=== PATIENT | male | born 1970 | race Caucasian/White ===

== ENCOUNTER 2017-07-19 10:23 | Emergency (ER) | payer OTHER ==
[~2017-07-19] VITALS: Ht 180.3 cm; Wt 117.9 kg
[~2017-07-19 10:23] MED LIST: (None)20 M1 PO; ALLEGRA ALLERG180 MG PO; Acyclovir800 MG PO; Albuterol17 G1 INH; BENZ100A PO; FEXPSEER PO; Flonase 0.05% N16 GM; LORA10 PO; Prednisone10 MG PO; Prednisone20 MG PO; TRIA80TC TOP
[2017-07-19] MEDS ORDERED: Prednisone20 MG PO (11:25)
[2017-07-19] MEDS ORDERED: TRIA15CR3 TOP (11:25)
== END 2017-07-19 11:42 | disposition home or self-care (01) ==
LOC: ER 10:23
DX: L23.7 Allergic contact dermatitis due to plants, except food (principal); Z88.5 Allergy status to narcotic agent; Z87.891 Personal history of nicotine dependence
CPT/HCPCS: 96372; 99283; J3301

== ENCOUNTER 2018-08-27 18:46 | Emergency (ER) | payer OTHER ==
[~2018-08-27] VITALS: Ht 177.8 cm; Wt 131.5 kg
[~2018-08-27 18:46] MED LIST changes: +PENVK500 PO; +TRIA15CR3 TOP
[2018-08-27] MEDS ORDERED: Norco 5-325 Ta1 EACH PO (21:13)
== END 2018-08-27 21:19 | disposition home or self-care (01) ==
LOC: ER 18:46
DX: M25.562 Pain in left knee (principal); E78.00 Pure hypercholesterolemia, unspecified; Z88.5 Allergy status to narcotic agent; Z87.891 Personal history of nicotine dependence; W19.XXXA Unspecified fall, initial encounter
CPT/HCPCS: 29505; 73564; 99283-25; A9270-GY

== ENCOUNTER 2019-03-07 01:00 | Observation (INO) | payer OTHER ==
[~2019-03-07] VITALS: Ht 180.3 cm; Wt 128.4 kg
[~2019-03-07 01:00] MED LIST changes: +Norco 5-325 Ta1 EACH PO; +ROBITUSSIN NIG237 ML PO; +Sudogest30 MG PO; +Zithromax250 MG PO
[2019-03-07 01:25] LABS: BASOPHILS ABSOLUTE AUTO 0.03 K/mm3 (0.00-0.23); BASOPHILS PERCENT AUTO 0 % (0-2); EOSINOPHILS ABSOLUTE AUTO 0.17 K/mm3 (0.00-0.68); EOSINOPHILS PERCENT AUTO 2 % (0-6); Hematocrit 45.8 % (37.0-53.0); Hemoglobin 15.3 g/dL (13.5-17.5); IMMATURE GRAN ABSOLUTE AUTO 0.05 K/mm3 (0.00-0.10); IMMATURE GRAN PERCENT AUTO 1 % (0-1); LYMPHOCYTES PERCENT AUTO 31 % (21-46); MONOCYTES ABSOLUTE AUTO 0.79 K/mm3 (0.16-1.47); MONOCYTES PERCENT AUTO 8 % (4-13); Mean Corpuscular HGB 31.4 pg (26.0-34.0); Mean Corpuscular HGB Conc 33.4 g/dL (31.5-36.5); Mean Corpuscular Volume 94 fL (80-100); Mean Platelet Volume 10.6 fL (9.1-12.4); NEUTROPHILS ABSOLUTE AUTO 5.97 K/mm3 (1.96-9.15); NEUTROPHILS PERCENT AUTO 59 % (41-73); Platelet Count 265 K/mm3 (150-400); RDW Coefficient Variation 12.3 % (11.7-14.2); RDW Standard Deviation 42.4 fL (35.1-46.3); Red Blood Cell Count 4.87 M/mm3 (4.30-5.90); White Blood Cell Count 10.11 K/mm3 (4.00-11.30)
[2019-03-07 01:44] LABS: Alanine Aminotransfer (ALT/SGP 38 U/L (12-78); Albumin, Blood 3.7 g/dL (3.4-5.0); Albumin/Globulin Ratio 0.9 (0.8-1.8); Alk Phos 119 U/L (50-136); Anion Gap 10 mmol/L (6-16); Aspartate Aminotrans (AST/SGOT 19 U/L (12-37); Bilirubin, Total 0.5 mg/dL (0.1-1.0); Blood Urea Nitrogen 12 mg/dL (8-24); Bun/Creatinine Ratio 15.6 (12.0-20.0); CO2, Blood 21 mmol/L (21-32); Calcium, Blood 8.8 mg/dL (8.5-10.1); Chloride, Blood 109 mmol/L (98-108); Creatinine, Blood 0.77 mg/dL (0.60-1.20); Glomerular Filtration Rate >60 (60-); Glucose, Blood 145 mg/dL (70-99); Potassium, Blood 3.2 mmol/L (3.5-5.5); Salicylate <1.7 mg/dL (2.8-20.0); Sodium, Blood 140 mmol/L (136-145); Total Protein, Blood 7.7 g/dL (6.4-8.2)
[2019-03-07 01:45] LABS: Acetaminophen, Random <2.0 ug/mL (10.0-30.0); Ethanol (Alcohol), Blood, Med <3 mg/dL
--- NOTE | 2019-03-07 03:00 | NUR ---
PT ARRIVED TO ICU 2 FROM ER. ACCOMPANIED BY SOLAR THERMAL INSTALLER, TECH, AND SECURITY X2. PT GETS AGITATED WITH CARE BUT IS DROWSY AND WILL FALL TO SLEEP IF LEFT ALONE. PT HAS SLURRED SPEECH AND KEEPS EYE'S CLOSED. WILL SWAT AT STAFF WITH CARE. HERE AND HELPS KEEP PT CALM.
[2019-03-07 04:04] LABS: Source, Urine Clean Catch
[2019-03-07 04:07] LABS: Bilirubin, Urine Neg (Neg); Blood, Urine Neg (Neg); Glucose Qualitative, Urine Neg (Neg); Ketones, Urine 2+ (Neg); Leukocyte Esterase, Urine Neg (Neg); Nitrite, Urine Neg (Neg); Protein, Urine Neg (Neg); Specific Gravity, Urine 1.015 (1.003-1.022); Urobilinogen, Urine NORM (Normal)
[2019-03-07 04:13] LABS: Appearance, Urine Clear (Clear); Color, Urine Yellow (P-Yellow)
[2019-03-07 04:22] LABS: U Amphetamine Screen DETECTED; U Barbituate Screen Not Detected; U Benzodiazapine Screen Not Detected; U Buprenorphine Screen Not Detected; U Cannabinoids Screen Not Detected; U Cocaine Screen Not Detected; U Methadone Screen Not Detected; U Methamphetamine Screen DETECTED; U Opiates Screen Not Detected; U Oxycodone Screen Not Detected; U Phencyclidine Screen Not Detected; U Propoxyphene Screen Not Detected
--- NOTE | 2019-03-07 06:14 | NUR ---
PT SLEEPING. CONTINUES TO BE ANGRY WITH STAFF AND WHEN AWAKE, BUT FALLS TO SLEEP QUICKLY. MOVING SELF IN BED. CONTINUES TO BE ON 1:1 SUICIDE PRECAUTIONS. NO SIGN OF DISTRESS.
--- NOTE | 2019-03-07 10:12 | NUR ---
PERSONNEL FROM [facility] AT BEDSIDE TO EVALUATE. PT TOO SOMNOLENT TO RESPOND TO QUESTIONS AT THIS TIME. WILL RETURN TOMORROW.
--- NOTE | 2019-03-07 11:01 | NUR ---
RECEIVED CALL FROM POISON [facility], GAVE THEM UPDATE ON PT CONDITION. THEY WILL CALL TOMORROW FOR UPDATE.
--- NOTE | 2019-03-07 12:28 | NUR ---
REASSESSMENT: PATIENT AOUSES TO SPEECH AND FOLLOWS COMANDS, BUT IS STILL SOMNOLENT. HRR AND VSS. LUNGS CTAB, BUT HAS APNEIC EPISODES WHILE SLEEPING. USING URINAL WITH ASSISTANCE. DENIED SI WHEN ASKED. DENIES PAIN. WENT HOME.
--- NOTE | 2019-03-07 15:26 | NUR ---
DR. LANZA AT BEDSIDE. UNABLE TO INTERVIEW PATIENT D/T SOMNOLENCE. WILL TRY AGAIN TOMORROW.
--- NOTE | 2019-03-07 18:13 | NUR ---
SHIFT SUMMARY: SOMNOLENT MOST OF SHIFT, BUT DOES AROUSE TO SPEECH AND FOLLOWS COMMANDS. VSS, AFEBRILE. LUNGS CTAB, ON ROOM AIR. DR. LANZA TO SEE PATIENT TOMORROW WHEN PT IS MORE AWAKE. STAUTS HAS BEEN CHANGED TO MEDICAL, NO TELE. USING URINAL WITH ASSISTANCE. DENIES SI WHEN ASKED.
--- NOTE | 2019-03-07 19:27 | NUR ---
START OF SHIFT: REPORT FROM GUI SOLORIO AT BEDSIDE. PT WAS FINISHING EVENING MEAL. VSS. PT ASSISTED UP TO TOILET AND TOLERATED WELL. PT PLEASANT AND COOPERATIVE. PT DENIES SI AT THIS TIME. PT GIVEN AND SHOWN USE OF CALL LIGHT. PT'S AT BEDSIDE.
--- NOTE | 2019-03-07 20:59 | NUR ---
UPDATE: PT CONTINUING TO SLEEP. KRUPA. MARIA R PWD. SPOUSE AT BEDSIDE. CALL LIGHT WITHIN REACH. THIS RN SITTING AT DOORWAY WITH PT IN FULL VIEW.
--- NOTE | 2019-03-07 21:42 | NUR ---
UPDATE: PT AWAKENS TO VOICE. GAVE PERMISSION TO PLACE SCD'S. SCD'S PLACED AND TURNED ON. PT CONTINUING TO SLEEP. KRUPA. SKIN PWD. SPOUSE WENT HOME BUT WILL BE BACK.
--- NOTE | 2019-03-08 02:20 | NUR ---
ASSUMED CARE OF PT AT 0100 THIS AM. REPORT RECEIVED FROM OSMIN MENG. PT PRESENTS IN BED IN NO APPARENT DISTRESS. AT BEDSIDE ROOMING IN FOR THE NIGHT. SITTER PROVIDED FOR 1:1 SUICIDAL PRECAUTIONS. WILL CONTINUE TO MONITOR PT FOR SAFETY.
[2019-03-08 04:59] LABS: Albumin, Blood 3.4 g/dL (3.4-5.0); Anion Gap 6 mmol/L (6-16); Blood Urea Nitrogen 9 mg/dL (8-24); Bun/Creatinine Ratio 10.4 (12.0-20.0); CO2, Blood 25 mmol/L (21-32); Calcium, Blood 8.9 mg/dL (8.5-10.1); Chloride, Blood 113 mmol/L (98-108); Creatinine, Blood 0.87 mg/dL (0.60-1.20); Glomerular Filtration Rate >60 (60-); Glucose, Blood 91 mg/dL (70-99); Phosphorus, Blood 3.5 mg/dL (2.5-4.9); Potassium, Blood 3.7 mmol/L (3.5-5.5); Sodium, Blood 144 mmol/L (136-145)
--- NOTE | 2019-03-08 06:47 | NUR ---
PT HAS NOT MADE ANY ATTEMPTS TOWARDS SELF HARM. WHEN AWAKE WAS PLEASANT AND COOPERATIVE WITH CARE. NO VOICED OR S/S SUICIDAL IDEATIONS. NO AGITATION NOTED. WILL CONTINUE TO MONITOR, HAVE 1:1 SITTER FOR PATIENT SAFETY, AND WILL REPORT OFF TO ONCOMING RN.
--- NOTE | 2019-03-08 07:21 | NUR ---
ASSUMED CARE OF PT. PT IS ASLEEP. AWAKENS TO VOICE. ANSWERS QUESTIONS APPROPRIATELY. DENIES PAIN AT THIS TIME. PT'S AT BEDSIDE. WILL ALLOW PT TO SLEEP IN.
--- NOTE | 2019-03-08 07:54 | NUR ---
Pt eating breakfast at this time.
--- NOTE | 2019-03-08 09:04 | NUR ---
DR. VENCES AT BEDSIDE, UPDATED HER OF PT'S STATUS. PT HAS BEEN COOPERATIVE AMD HAS BEEN DENYING SUICIDAL IDEATION OR THOUGHTS.
--- NOTE | 2019-03-08 09:45 | NUR ---
PT TAKEN TO THE SHOWER ROOM FOR SHOWER. PT WAS MONITORED WHILE HE'S IN THE SHOWER.
--- NOTE | 2019-03-08 10:03 | NUR ---
[id number], WITH [facility] AT BEDSIDE TALKING TO PT. 1003-MARCIA ALVAREZ AT BEDSIDE TALKING TO PT REGARDING PT'S SAFETY PLAN.
--- NOTE | 2019-03-08 10:36 | NUR ---
Completed Safety Plan. Patient cooperative and engaged in plan. Became tearful; when relaying his current stressors of ovarian cancer and her recent surgery, currently living with friend due to loss of their home. He ws seeing Dr. Panchal and Raquel at [facility], but stopped seeing them He indepemdently scheduled his own follow up appoiinments for meds , and therapy March 23. He was on Olanzapine and stopped taking his meds about 3 months ago. He does experience hallucination of seeing shadows, voices, and at times TV talking to him. He was actively hallucnating at time of this interview. He describes that he bacame overwhelmed and wanted to go to sleep. He took 10 Olanzapine, and did tell his what he had done. He reports no previous attempts. He does use alcohol, unkown if he was using substances at time of OD. He has filed for SSD, and says he is unable to work with other people as he has "anger problems". He was soft spoken, goal directed and made good eye contact during interview. He is on an involuntary Hold and waxs seen by [facility] [employer] Server this morning. She reports she is not moving forward with further legal commitment. He is future oriented and states it was "stupid" what he did. He reports he does not currently have thoughts of suicide, self harm. Danielle Glaser M.Ed., [facility]
--- NOTE | 2019-03-08 13:00 | NUR ---
DR. LANZA WAS CALLED IF HE WILL BE COMING TO SEE PT. HE STATED HE WILL COME SHORTLY.
--- NOTE | 2019-03-08 14:43 | NUR ---
1405-RONAK HUGGINS, MENTAL HEALTH PRACTITIONER CAME BY AND SPOKE WITH PT AND . SHE STATED TO LIFT THE HOLD AND THE HIGH SUICIDE RISK. 1440-SPOKE WITH DR. VENCES, INFORMED HER RONAK HUGGINS CAME BY TO SEE PT AND THAT PT CAN BE DISCHARGE.
--- NOTE | 2019-03-08 15:49 | NUR ---
DISCHARGE INSTRUCTIONS READ TO PATIENT AND SENT DISCHARGE INSTRUCTION PACKET WITH PATIENT. AWAITING FOR JEANNINE BAIN TO GIVE PT AND SOME ASSISTANCE.
--- NOTE | 2019-03-08 16:09 | NUR ---
pt left for home at this time.
== END 2019-03-08 16:00 | disposition home or self-care (01) ==
LOC: ER 01:00 → ICUW 01:01 → ICUE 01:01
PROVIDERS: Emergency Medicine; Family Medicine; ADMIT Hospitalist
DX: T42.4X2A Poisoning by benzodiazepines, intentional self-harm, initial encounter (principal); G92 Toxic encephalopathy; F31.9 Bipolar disorder, unspecified; F63.81 Intermittent explosive disorder; E87.6 Hypokalemia; F17.200 Nicotine dependence, unspecified, uncomplicated; E66.9 Obesity, unspecified; Z68.41 Body mass index [BMI] 40.0-44.9, adult; Z88.5 Allergy status to narcotic agent; Z79.899 Other long term (current) drug therapy
CPT/HCPCS: 36415; 80053; 80069; 81003; 85025; 93005; 93010; 96360; 96361; 99285-25; G0378; G0480; J3480; J7030

== ENCOUNTER 2019-05-26 05:06 | Emergency (ER) | payer OTHER ==
[~2019-05-26] VITALS: Ht 180.3 cm; Wt 136.1 kg
[2019-05-26 05:45] LABS: BASOPHILS ABSOLUTE AUTO 0.07 K/mm3 (0.00-0.23); BASOPHILS PERCENT AUTO 1 % (0-2); EOSINOPHILS ABSOLUTE AUTO 0.34 K/mm3 (0.00-0.68); EOSINOPHILS PERCENT AUTO 3 % (0-6); Hematocrit 49.2 % (37.0-53.0); Hemoglobin 16.2 g/dL (13.5-17.5); IMMATURE GRAN PERCENT AUTO 1 % (0-1); LYMPHOCYTES ABSOLUTE AUTO 3.21 K/mm3 (0.84-5.20); LYMPHOCYTES PERCENT AUTO 26 % (21-46); MONOCYTES ABSOLUTE AUTO 0.71 K/mm3 (0.16-1.47); MONOCYTES PERCENT AUTO 6 % (4-13); Mean Corpuscular HGB 31.1 pg (26.0-34.0); Mean Corpuscular HGB Conc 32.9 g/dL (31.5-36.5); Mean Corpuscular Volume 94 fL (80-100); Mean Platelet Volume 10.3 fL (9.1-12.4); NEUTROPHILS ABSOLUTE AUTO 7.91 K/mm3 (1.96-9.15); NEUTROPHILS PERCENT AUTO 64 % (41-73); Platelet Count 323 K/mm3 (150-400); RDW Coefficient Variation 12.2 % (11.7-14.2); RDW Standard Deviation 42.8 fL (35.1-46.3); Red Blood Cell Count 5.21 M/mm3 (4.30-5.90); White Blood Cell Count 12.34 K/mm3 (4.00-11.30)
[2019-05-26 06:07] LABS: Alanine Aminotransfer (ALT/SGP 38 U/L (12-78); Albumin, Blood 3.4 g/dL (3.4-5.0); Albumin/Globulin Ratio 0.8 (0.8-1.8); Anion Gap 7 mmol/L (6-16); Aspartate Aminotrans (AST/SGOT 21 U/L (12-37); Bilirubin, Total 0.3 mg/dL (0.1-1.0); Blood Urea Nitrogen 11 mg/dL (8-24); Bun/Creatinine Ratio 13.4 (12.0-20.0); CO2, Blood 26 mmol/L (21-32); Calcium, Blood 9.6 mg/dL (8.5-10.1); Chloride, Blood 108 mmol/L (98-108); Creatinine, Blood 0.82 mg/dL (0.60-1.20); Globulin, Blood 4.3 g/dL (2.2-4.0); Glomerular Filtration Rate >60 (60-); Glucose, Blood 114 mg/dL (70-99); Potassium, Blood 4.1 mmol/L (3.5-5.5); Sodium, Blood 141 mmol/L (136-145); Total Protein, Blood 7.7 g/dL (6.4-8.2)
[2019-05-26 06:09] LABS: Alk Phos 133 U/L (50-136); Troponin I <0.015 ng/mL (0.000-0.040)
[2019-05-26] MEDS ORDERED: Pepcid20 MG PO (07:43)
[2019-05-26] MEDS ORDERED: Veetids 500500 MG PO (07:43)
== END 2019-05-26 07:52 | disposition home or self-care (01) ==
LOC: ER 05:06
PROVIDERS: Emergency Medicine
DX: K21.9 Gastro-esophageal reflux disease without esophagitis (principal); K80.20 Calculus of gallbladder without cholecystitis without obstruction; K04.7 Periapical abscess without sinus
CPT/HCPCS: 71046; 76705; 80053; 83690; 84484; 85025; 93005; 93010; 99284-25

== ENCOUNTER 2019-07-14 13:32 | Emergency (ER) | payer OTHER ==
[~2019-07-14] VITALS: Ht 180.3 cm; Wt 127.0 kg
[~2019-07-14 13:32] MED LIST changes: +Pepcid20 MG PO; +Veetids 500500 MG PO
[2019-07-14] MEDS ORDERED: AMIT25 PO (14:10)
[2019-07-14] MEDS ORDERED: PERP4 PO (14:10)
[2019-07-14] MEDS ORDERED: PRILOSEC OTC20 MG PO (14:11)
[2019-07-14] MEDS ORDERED: Prednisone20 MG PO (15:24)
[2019-07-14] MEDS ORDERED: ALBU90OI INH (15:24)
[2019-07-14] MEDS ORDERED: PSEU120ER PO (15:24)
== END 2019-07-14 15:35 | disposition home or self-care (01) ==
LOC: ER 13:32
DX: J45.909 Unspecified asthma, uncomplicated (principal); F31.9 Bipolar disorder, unspecified; F17.200 Nicotine dependence, unspecified, uncomplicated; Z88.5 Allergy status to narcotic agent
CPT/HCPCS: 94640; 99283-25; J7512

== ENCOUNTER 2019-11-20 08:50 | Emergency (ER) | payer OTHER ==
[~2019-11-20 08:50] MED LIST changes: +ALBU90OI INH; +AMIT10; +AMIT25 PO; +FAMO20; +OLAN10; +OMEPRAZOLE MAGN20 M2; +PERP4 PO; +PRILOSEC OTC20 MG PO; +PSEU120ER PO
== END 2019-11-20 09:52 | disposition left against medical advice (07) ==
LOC: ER 08:50
DX: Z53.21 Procedure and treatment not carried out due to patient leaving prior to being seen by health care provider (principal)

== ENCOUNTER 2019-12-24 15:46 | Emergency (ER) | payer OTHER ==
[~2019-12-24] VITALS: Ht 180.3 cm; Wt 141.1 kg
[2019-12-24] MEDS ORDERED: Percocet 5-3251 EACH PO (16:47)
[2019-12-24] MEDS ORDERED: IBUP800 PO (16:47)
[2019-12-24] MEDS ORDERED: CRUTCH4 XX (16:48)
== END 2019-12-24 17:15 | disposition home or self-care (01) ==
LOC: ER 15:46
DX: S93.401A Sprain of unspecified ligament of right ankle, initial encounter (principal); S93.402A Sprain of unspecified ligament of left ankle, initial encounter; F31.9 Bipolar disorder, unspecified; F17.200 Nicotine dependence, unspecified, uncomplicated; Z79.899 Other long term (current) drug therapy; Z88.5 Allergy status to narcotic agent; W17.89XA Other fall from one level to another, initial encounter; Y93.39 Activity, other involving climbing, rappelling and jumping off
CPT/HCPCS: 29515; 73610; 73630; 96372-59; 99283-25; A9270; J1885

== ENCOUNTER 2019-12-31 12:33 | Emergency (ER) | payer OTHER ==
[~2019-12-31] VITALS: Ht 180.3 cm; Wt 141.1 kg
[~2019-12-31 12:33] MED LIST changes: +CRUTCH4 XX; +IBUP800 PO; +Percocet 5-3251 EACH PO
[2019-12-31] MEDS ORDERED: ACETAMINOPHEN500 MG PO (14:10)
== END 2019-12-31 14:20 | disposition home or self-care (01) ==
LOC: ER 12:33
DX: M25.571 Pain in right ankle and joints of right foot (principal); M25.572 Pain in left ankle and joints of left foot; J30.2 Other seasonal allergic rhinitis; Z87.891 Personal history of nicotine dependence; Z79.899 Other long term (current) drug therapy; Z88.5 Allergy status to narcotic agent; W17.89XA Other fall from one level to another, initial encounter; Y93.39 Activity, other involving climbing, rappelling and jumping off
CPT/HCPCS: 99283

== ENCOUNTER 2020-02-12 02:13 | Emergency (ER) | payer OTHER ==
[~2020-02-12] VITALS: Ht 180.3 cm; Wt 143.8 kg
[~2020-02-12 02:13] MED LIST changes: +ACETAMINOPHEN500 MG PO
== END 2020-02-12 05:28 | disposition home or self-care (01) ==
LOC: ER 02:13
DX: T78.1XXA Other adverse food reactions, not elsewhere classified, initial encounter (principal); R13.10 Dysphagia, unspecified; R60.0 Localized edema; F31.9 Bipolar disorder, unspecified; F17.200 Nicotine dependence, unspecified, uncomplicated; Z79.899 Other long term (current) drug therapy; Z88.5 Allergy status to narcotic agent
CPT/HCPCS: 36415; 96374; 96375; 99283-25; J1100; J1200

== ENCOUNTER 2020-04-20 05:04 | Emergency (ER) | payer OTHER ==
[~2020-04-20] VITALS: Ht 180.3 cm; Wt 147.4 kg
[2020-04-20] MEDS ORDERED: Bactrim Ds Tab1 EACH PO (06:13)
== END 2020-04-20 06:19 | disposition home or self-care (01) ==
LOC: ER 05:04
DX: H66.91 Otitis media, unspecified, right ear (principal); F17.210 Nicotine dependence, cigarettes, uncomplicated; Z79.899 Other long term (current) drug therapy; Z88.5 Allergy status to narcotic agent
CPT/HCPCS: 99282; A9270

== ENCOUNTER 2020-05-01 01:03 | Emergency (ER) | payer OTHER ==
[~2020-05-01] VITALS: Ht 182.9 cm; Wt 147.4 kg
[~2020-05-01 01:03] MED LIST changes: +Bactrim Ds Tab1 EACH PO
[2020-05-01] MEDS ORDERED: Colace250 MG PO (03:21)
[2020-05-01] MEDS ORDERED: HYDR1TAB94 PO (03:21)
== END 2020-05-01 03:50 | disposition home or self-care (01) ==
LOC: ER 01:03
DX: K04.7 Periapical abscess without sinus (principal); F17.200 Nicotine dependence, unspecified, uncomplicated; Z88.5 Allergy status to narcotic agent
CPT/HCPCS: 64400; 99282-25; A9270

== ENCOUNTER 2020-07-03 09:47 | Emergency (ER) | payer OTHER | END 2020-07-03 10:31 | disposition left against medical advice (07) | LOC: ER 09:47 | DX: Z53.21 Procedure and treatment not carried out due to patient leaving prior to being seen by health care provider (principal) ==

== ENCOUNTER 2020-10-13 11:20 | Emergency (ER) | payer OTHER ==
[~2020-10-13] VITALS: Ht 180.3 cm; Wt 138.3 kg
[~2020-10-13 11:20] MED LIST changes: +Colace250 MG PO; +HYDR1TAB94 PO
[2020-10-13] MEDS ORDERED: Ventolin/Prove6.7 GM (11:32)
[2020-10-13] MEDS ORDERED: PRILOSEC OTC20 MG (11:33)
[2020-10-13] MEDS ORDERED: Prednisone20 MG PO (11:48)
== END 2020-10-13 11:58 | disposition home or self-care (01) ==
LOC: ER 11:20
DX: L50.9 Urticaria, unspecified (principal); F17.210 Nicotine dependence, cigarettes, uncomplicated; Z88.5 Allergy status to narcotic agent; Z79.899 Other long term (current) drug therapy; Z79.52 Long term (current) use of systemic steroids
CPT/HCPCS: 99282; A9270

== ENCOUNTER 2020-11-28 16:13 | Emergency (ER) | payer OTHER ==
[~2020-11-28] VITALS: Ht 180.3 cm; Wt 140.6 kg
[~2020-11-28 16:13] MED LIST changes: +PRILOSEC OTC20 MG; +Ventolin/Prove6.7 GM
[2020-11-28 16:44] LABS: BASOPHILS ABSOLUTE AUTO 0.09 K/mm3 (0.00-0.23); BASOPHILS PERCENT AUTO 1 % (0-2); EOSINOPHILS ABSOLUTE AUTO 0.37 K/mm3 (0.00-0.68); EOSINOPHILS PERCENT AUTO 3 % (0-6); Hematocrit 50.1 % (37.0-53.0); Hemoglobin 16.7 g/dL (13.5-17.5); IMMATURE GRAN ABSOLUTE AUTO 0.22 K/mm3 (0.00-0.10); IMMATURE GRAN PERCENT AUTO 2 % (0-1); LYMPHOCYTES ABSOLUTE AUTO 2.57 K/mm3 (0.84-5.20); LYMPHOCYTES PERCENT AUTO 20 % (21-46); MONOCYTES ABSOLUTE AUTO 1.02 K/mm3 (0.16-1.47); MONOCYTES PERCENT AUTO 8 % (4-13); Mean Corpuscular HGB 31.3 pg (26.0-34.0); Mean Corpuscular HGB Conc 33.3 g/dL (31.5-36.5); Mean Corpuscular Volume 94 fL (80-100); Mean Platelet Volume 10.4 fL (9.1-12.4); NEUTROPHILS ABSOLUTE AUTO 8.69 K/mm3 (1.96-9.15); NEUTROPHILS PERCENT AUTO 67 % (41-73); Platelet Count 318 K/mm3 (150-400); Red Blood Cell Count 5.34 M/mm3 (4.30-5.90); White Blood Cell Count 12.96 K/mm3 (4.00-11.30)
[2020-11-28 16:57] LABS: Alanine Aminotransfer (ALT/SGP 106 U/L (12-78); Albumin, Blood 3.6 g/dL (3.4-5.0); Albumin/Globulin Ratio 0.8 (0.8-1.8); Alk Phos 170 U/L (50-136); Anion Gap 1 mmol/L (6-16); Aspartate Aminotrans (AST/SGOT 41 U/L (12-37); Bilirubin, Total 0.3 mg/dL (0.1-1.0); Blood Urea Nitrogen 11 mg/dL (8-24); Bun/Creatinine Ratio 10.7 (12.0-20.0); CO2, Blood 30 mmol/L (21-32); Calcium, Blood 9.1 mg/dL (8.5-10.1); Chloride, Blood 109 mmol/L (98-108); Creatinine, Blood 1.03 mg/dL (0.60-1.20); Globulin, Blood 4.7 g/dL (2.2-4.0); Glomerular Filtration Rate >60 (60-); Glucose, Blood 126 mg/dL (70-99); Potassium, Blood 4.2 mmol/L (3.5-5.5); Sodium, Blood 140 mmol/L (136-145); Total Protein, Blood 8.3 g/dL (6.4-8.2)
[2020-11-28] MEDS ORDERED: PRED20 PO (17:48)
[2020-11-28] MEDS ORDERED: BENADRYL25 MG PO (17:48)
== END 2020-11-28 18:01 | disposition home or self-care (01) ==
LOC: ER 16:13
PROVIDERS: Physician Assistant
DX: T78.40XA Allergy, unspecified, initial encounter (principal); L29.9 Pruritus, unspecified; F17.210 Nicotine dependence, cigarettes, uncomplicated; Z20.822 Contact with and (suspected) exposure to COVID-19; Z88.5 Allergy status to narcotic agent; Z79.899 Other long term (current) drug therapy
CPT/HCPCS: 36415; 71046; 80053; 84484; 85025; 93005; 93010; 96374; 96375; 99284-25; J1200; J2930

== ENCOUNTER 2021-01-05 21:29 | Observation (INO) | payer OTHER ==
[~2021-01-05] VITALS: Ht 180.3 cm; Wt 154.2 kg
[~2021-01-05 21:29] MED LIST changes: +BENADRYL25 MG PO; +PRED20 PO
[2021-01-05 21:58] LABS: BASOPHILS ABSOLUTE AUTO 0.05 K/mm3 (0.00-0.23); BASOPHILS PERCENT AUTO 1 % (0-2); EOSINOPHILS ABSOLUTE AUTO 0.33 K/mm3 (0.00-0.68); EOSINOPHILS PERCENT AUTO 3 % (0-6); Hematocrit 47.1 % (37.0-53.0); Hemoglobin 15.7 g/dL (13.5-17.5); IMMATURE GRAN ABSOLUTE AUTO 0.08 K/mm3 (0.00-0.10); IMMATURE GRAN PERCENT AUTO 1 % (0-1); LYMPHOCYTES ABSOLUTE AUTO 2.56 K/mm3 (0.84-5.20); LYMPHOCYTES PERCENT AUTO 25 % (21-46); MONOCYTES ABSOLUTE AUTO 0.78 K/mm3 (0.16-1.47); MONOCYTES PERCENT AUTO 8 % (4-13); Mean Corpuscular HGB 31.6 pg (26.0-34.0); Mean Corpuscular HGB Conc 33.3 g/dL (31.5-36.5); Mean Corpuscular Volume 95 fL (80-100); Mean Platelet Volume 10.1 fL (9.1-12.4); NEUTROPHILS ABSOLUTE AUTO 6.61 K/mm3 (1.96-9.15); NEUTROPHILS PERCENT AUTO 63 % (41-73); Platelet Count 283 K/mm3 (150-400); RDW Coefficient Variation 12.8 % (11.7-14.2); RDW Standard Deviation 44.5 fL (35.1-46.3); Red Blood Cell Count 4.97 M/mm3 (4.30-5.90); White Blood Cell Count 10.41 K/mm3 (4.00-11.30)
[2021-01-05 22:16] LABS: Alanine Aminotransfer (ALT/SGP 57 U/L (12-78); Albumin, Blood 3.4 g/dL (3.4-5.0); Albumin/Globulin Ratio 0.7 (0.8-1.8); Alk Phos 186 U/L (50-136); Anion Gap 7 mmol/L (6-16); Aspartate Aminotrans (AST/SGOT 28 U/L (12-37); Bilirubin, Total 0.2 mg/dL (0.1-1.0); Blood Urea Nitrogen 10 mg/dL (8-24); CO2, Blood 25 mmol/L (21-32); Calcium, Blood 9.3 mg/dL (8.5-10.1); Chloride, Blood 108 mmol/L (98-108); Creatinine, Blood 0.84 mg/dL (0.60-1.20); Globulin, Blood 4.8 g/dL (2.2-4.0); Glomerular Filtration Rate >60 (60-); Glucose, Blood 110 mg/dL (70-99); Sodium, Blood 140 mmol/L (136-145); Total Protein, Blood 8.2 g/dL (6.4-8.2)
[2021-01-05] MEDS ORDERED: OMEPRAZOLE MAGN20 M1 PO (23:19)
[2021-01-06 00:15] LABS: Source, Urine Clean Catch
[2021-01-06 00:16] LABS: Bilirubin, Urine Neg (Neg); Blood, Urine Neg (Neg); Glucose Qualitative, Urine Neg (Neg); Ketones, Urine Neg (Neg); Leukocyte Esterase, Urine Neg (Neg); Nitrite, Urine Neg (Neg); Protein, Urine Neg (Neg); Urobilinogen, Urine NORM (Normal)
[2021-01-06 00:20] LABS: Appearance, Urine Clear (Clear); Color, Urine Yellow (P-Yellow)
[2021-01-06 01:12] LABS: SARS-Cov-2 (COVID-19) PCR, MMC NEGATIVE (NEGATIVE)
--- NOTE | 2021-01-06 06:32 | NUR ---
PT AAOX4, NAD, PT SLEEPING COMFOTABLY, NO NEEDS VERBALIZED AT AT THIS TIME. PT AWARE OF CARE. SAFETY MEASUREMENT MAINTAINED.
--- NOTE | 2021-01-06 12:30 | NUR ---
PT TO OR AT APROX 1237
--- NOTE | 2021-01-06 13:03 | NUR ---
PT HERE BY DWAYNE RECENTLY TO DAYSURGERY. History, Chart, Medications and Allergies reviewed before start of procedure. Lungs clear T/O to Auscultation. Patient confirms NPO status and agrees with scheduled surgery. Pre-Op teaching done. Pt verbalizes understanding.
--- NOTE | 2021-01-06 13:34 | NUR ---
OTHER RN Murray ASSUMING CARE OF PT IN DAYSURGERY, GIVEN REPORT.
--- NOTE | 2021-01-06 19:11 | NUR ---
PT POD 0 LAP KYRIE. LAP SITES X'S 4 C/D/I. PT C/O 12/29 PAIN GIVEN 0.[address] GEORGE. PT 99% ON 6L, WILL TITRATE ABLE. ORDER FOR CPAP AND CONTINOUS BIOX-RT NOTIFED.
--- NOTE | 2021-01-07 04:27 | NUR ---
SHIFT SUMMARY A/OX4, PLEASANT AND COOPERATIVE WITH CARE. C/O MODERATE ABD PAIN S/P LAP KYRIE, MEDICATED PER EMAR. DRESSINGS C/D/I. 5L VIA NC, CONT BIOX IN PLACE WITH SATS GREATER THAN 92. VSS, NO ACUTE CHANGES AT THIS TIME. BED IN LOWEST POSIITON WITH CALL LIGHT IN REACH. WILL CONTINUE TO MONITOR AND REPORT TO ONCOMING RN.
[2021-01-07] MEDS ORDERED: Norco 5-325 Ta1 EACH PO (07:33)
--- NOTE | 2021-01-07 10:19 | NUR ---
DISCHARGE PT DISCHARGED HOME AT 0935 FROM UNIT. PT GIVEN WRITTEN AND VERBAL DISCHARGE INSTRUCTIONS AND VERBALIZED UNDERSTANDING. WRITTEN RX FOR PAIN MEDICATION GIVEN, COPY IN CHART. WC TO CAR.
--- NOTE | 2021-01-07 12:20 | NUR ---
01/07/21 1220 Judith Flores VERIFICATIONS: EDIT CHART.
== END 2021-01-07 10:02 | disposition home or self-care (01) ==
LOC: ER 21:29 → SURS 21:30 → ER 23:54 → SURS 23:54
PROVIDERS: Emergency Medicine; Student in an Organized Health Care Education/Training Program; Surgery; ADMIT Surgery
PROC: 0FT44ZZ Resection of Gallbladder, Percutaneous Endoscopic Approach (ICD-10-PCS; principal; 2021-01-06 13:00)
DX: K80.12 Calculus of gallbladder with acute and chronic cholecystitis without obstruction (principal); J30.9 Allergic rhinitis, unspecified; E66.01 Morbid (severe) obesity due to excess calories; F17.210 Nicotine dependence, cigarettes, uncomplicated; Z88.5 Allergy status to narcotic agent; Z79.52 Long term (current) use of systemic steroids; Z79.899 Other long term (current) drug therapy; Z68.42 Body mass index [BMI] 45.0-49.9, adult
CPT/HCPCS: 36415; 71045; 74177; 74300; 76705; 80053; 81003; 83605; 83690; 85025; 88304; 93005; 93010; 94660; 94762; 96374; 96375; 96376; 99285-25; A9270; C1729; G0378; J1100; J1170; J1885; J2270; J2370; J2405; J2543; J2704; J3010; J7030; J7120; Q9967; U0004

== ENCOUNTER 2021-01-22 04:57 | Emergency (ER) | payer OTHER ==
[~2021-01-22] VITALS: Ht 180.3 cm; Wt 156.9 kg
[~2021-01-22 04:57] MED LIST changes: +OMEPRAZOLE MAGN20 M1 PO
[2021-01-22] MEDS ORDERED: CEPHALEXIN 500MG (05:19)
[2021-01-22] MEDS ORDERED: DOCU100 PO (05:20)
[2021-01-22] MEDS ORDERED: Monodox100 MG (05:20)
== END 2021-01-22 07:15 | disposition home or self-care (01) ==
LOC: ER 04:57
DX: T81.41XA Infection following a procedure, superficial incisional surgical site, initial encounter (principal); L03.311 Cellulitis of abdominal wall; T36.1X5A Adverse effect of cephalosporins and other beta-lactam antibiotics, initial encounter; F17.200 Nicotine dependence, unspecified, uncomplicated
CPT/HCPCS: 99283; A9270

== ENCOUNTER 2021-02-22 00:41 | Emergency (ER) | payer OTHER ==
[~2021-02-22] VITALS: Ht 180.3 cm; Wt 158.3 kg
[~2021-02-22 00:41] MED LIST changes: +CEPHALEXIN 500MG; +DOCU100 PO; +Monodox100 MG
[2021-02-22 02:16] LABS: BASOPHILS ABSOLUTE AUTO 0.04 K/mm3 (0.00-0.23); BASOPHILS PERCENT AUTO 0 % (0-2); EOSINOPHILS ABSOLUTE AUTO 0.29 K/mm3 (0.00-0.68); EOSINOPHILS PERCENT AUTO 3 % (0-6); Hematocrit 40.4 % (37.0-53.0); Hemoglobin 13.1 g/dL (13.5-17.5); IMMATURE GRAN ABSOLUTE AUTO 0.13 K/mm3 (0.00-0.10); IMMATURE GRAN PERCENT AUTO 1 % (0-1); LYMPHOCYTES ABSOLUTE AUTO 2.61 K/mm3 (0.84-5.20); LYMPHOCYTES PERCENT AUTO 27 % (21-46); MONOCYTES ABSOLUTE AUTO 0.66 K/mm3 (0.16-1.47); MONOCYTES PERCENT AUTO 7 % (4-13); Mean Corpuscular HGB Conc 32.4 g/dL (31.5-36.5); Mean Corpuscular Volume 96 fL (80-100); Mean Platelet Volume 10.5 fL (9.1-12.4); NEUTROPHILS ABSOLUTE AUTO 6.05 K/mm3 (1.96-9.15); NEUTROPHILS PERCENT AUTO 62 % (41-73); Platelet Count 228 K/mm3 (150-400); RDW Coefficient Variation 12.6 % (11.7-14.2); RDW Standard Deviation 44.5 fL (35.1-46.3); Red Blood Cell Count 4.23 M/mm3 (4.30-5.90); White Blood Cell Count 9.78 K/mm3 (4.00-11.30)
[2021-02-22 02:22] LABS: Alanine Aminotransfer (ALT/SGP 88 U/L (12-78); Albumin, Blood 2.9 g/dL (3.4-5.0); Albumin/Globulin Ratio 0.7 (0.8-1.8); Alk Phos 182 U/L (50-136); Anion Gap 8 mmol/L (6-16); Aspartate Aminotrans (AST/SGOT 35 U/L (12-37); Bilirubin, Total 0.1 mg/dL (0.1-1.0); Blood Urea Nitrogen 10 mg/dL (8-24); CO2, Blood 25 mmol/L (21-32); Calcium, Blood 8.7 mg/dL (8.5-10.1); Chloride, Blood 107 mmol/L (98-108); Creatinine, Blood 0.83 mg/dL (0.60-1.20); Globulin, Blood 4.3 g/dL (2.2-4.0); Glomerular Filtration Rate >60 (60-); Glucose, Blood 298 mg/dL (70-99); Potassium, Blood 3.7 mmol/L (3.5-5.5); Sodium, Blood 140 mmol/L (136-145); Total Protein, Blood 7.2 g/dL (6.4-8.2); Troponin I <0.015 ng/mL (0.000-0.040)
[2021-02-22 04:15] LABS: Influenza A, PCR NEGATIVE (NEGATIVE); Influenza B, PCR NEGATIVE (NEGATIVE); Resp Syncytial Virus, PCR NEGATIVE (NEGATIVE); SARS-Cov-2 (COVID-19) PCR, MMC NEGATIVE (NEGATIVE)
== END 2021-02-22 07:38 | disposition home or self-care (01) ==
LOC: ER 00:41
PROVIDERS: Student in an Organized Health Care Education/Training Program
DX: R06.00 Dyspnea, unspecified (principal); R05.9 Cough, unspecified; Z20.822 Contact with and (suspected) exposure to COVID-19; F17.210 Nicotine dependence, cigarettes, uncomplicated; Z88.5 Allergy status to narcotic agent; Z79.899 Other long term (current) drug therapy
CPT/HCPCS: 0241U; 36415; 71045; 71260; 80053; 83880; 84484; 85025; 85379; 93005; 93010; 99285-25; Q9967

== ENCOUNTER 2021-08-03 14:53 | Emergency (ER) | payer OTHER ==
[~2021-08-03] VITALS: Ht 180.3 cm; Wt 142.9 kg
[2021-08-03] MEDS ORDERED: HYDR1TAB94 PO (16:25)
== END 2021-08-03 16:41 | disposition home or self-care (01) ==
LOC: ER 14:53
DX: M25.561 Pain in right knee (principal); F17.210 Nicotine dependence, cigarettes, uncomplicated; E66.9 Obesity, unspecified; X50.1XXA Overexertion from prolonged static or awkward postures, initial encounter; Z79.899 Other long term (current) drug therapy; Z88.5 Allergy status to narcotic agent
CPT/HCPCS: 73562-RT; A9270

== ENCOUNTER 2022-04-12 09:24 | Emergency (ER) | payer OTHER ==
[~2022-04-12] VITALS: Ht 172.7 cm; Wt 136.1 kg
[2022-04-12 10:53] LABS: Influenza A, PCR NEGATIVE (NEGATIVE); Influenza B, PCR NEGATIVE (NEGATIVE); Resp Syncytial Virus, PCR NEGATIVE (NEGATIVE); SARS-Cov-2 (COVID-19) PCR, MMC NEGATIVE (NEGATIVE)
[2022-04-12] MEDS ORDERED: BENZ100A PO (11:32)
== END 2022-04-12 11:50 | disposition home or self-care (01) ==
LOC: ER 09:24
PROVIDERS: Student in an Organized Health Care Education/Training Program
DX: J32.9 Chronic sinusitis, unspecified (principal); Z87.891 Personal history of nicotine dependence; Z20.822 Contact with and (suspected) exposure to COVID-19
CPT/HCPCS: 0241U; 71046; A9270

== ENCOUNTER 2022-04-18 15:54 | Emergency (ER) | payer OTHER ==
[~2022-04-18] VITALS: Ht 180.3 cm; Wt 170.6 kg
[~2022-04-18 15:54] MED LIST changes: +CODEINE-GUAIFE120 M1 PO; +CODITUSSIN AC473 M1 PO
[2022-04-18] MEDS ORDERED: CODITUSSIN AC473 M1 PO (16:19)
[2022-04-18] MEDS ORDERED: METF500C PO (23:34)
[2022-04-19] MEDS ORDERED: ALBU90OI INH (02:06)
[2022-04-19] MEDS ORDERED: PRED20 PO (02:06)
== END 2022-04-18 16:22 | disposition home or self-care (01) ==
LOC: ER 15:54
DX: J20.8 Acute bronchitis due to other specified organisms (principal); Z88.5 Allergy status to narcotic agent; Z79.899 Other long term (current) drug therapy; Z87.891 Personal history of nicotine dependence
CPT/HCPCS: 99282

== ENCOUNTER → 2022-05-15 | Outpatient (CLI) | payer OTHER ==
[~2022-05-15] MED LIST changes: +METF500C PO
[2022-05-15 13:25] LABS: BASOPHILS ABSOLUTE AUTO 0.04 K/mm3 (0.00-0.23); BASOPHILS PERCENT AUTO 0 % (0-2); EOSINOPHILS ABSOLUTE AUTO 0.34 K/mm3 (0.00-0.68); EOSINOPHILS PERCENT AUTO 4 % (0-6); Hematocrit 45.5 % (37.0-53.0); Hemoglobin 14.8 g/dL (13.5-17.5); IMMATURE GRAN ABSOLUTE AUTO 0.08 K/mm3 (0.00-0.10); IMMATURE GRAN PERCENT AUTO 1 % (0-1); LYMPHOCYTES ABSOLUTE AUTO 1.85 K/mm3 (0.84-5.20); LYMPHOCYTES PERCENT AUTO 19 % (21-46); MONOCYTES ABSOLUTE AUTO 0.58 K/mm3 (0.16-1.47); MONOCYTES PERCENT AUTO 6 % (4-13); Mean Corpuscular HGB 30.6 pg (26.0-34.0); Mean Corpuscular HGB Conc 32.5 g/dL (31.5-36.5); Mean Corpuscular Volume 94 fL (80-100); Mean Platelet Volume 10.2 fL (9.1-12.4); NEUTROPHILS PERCENT AUTO 70 % (41-73); Platelet Count 250 K/mm3 (150-400); RDW Coefficient Variation 13.4 % (11.7-14.2); RDW Standard Deviation 46.1 fL (35.1-46.3); Red Blood Cell Count 4.83 M/mm3 (4.30-5.90); White Blood Cell Count 9.59 K/mm3 (4.00-11.30)
[2022-05-15 13:32] LABS: Albumin, Blood 3.5 g/dL (3.4-5.0); Albumin/Globulin Ratio 0.8 (0.8-1.8); Bilirubin, Total 0.3 mg/dL (0.1-1.0); Calcium, Blood 9.1 mg/dL (8.5-10.1); Creatinine, Blood 1.07 mg/dL (0.60-1.20); Globulin, Blood 4.5 g/dL (2.2-4.0); Potassium, Blood 3.9 mmol/L (3.5-5.5)
== END | disposition home or self-care (01) ==
LOC: LAB SHORT 13:16
PROVIDERS: Physician Assistant
DX: R06.00 Dyspnea, unspecified (principal)
CPT/HCPCS: 80053; 83880; 84484; 85025

== ENCOUNTER 2022-05-27 07:58 | Emergency (ER) | payer OTHER ==
[~2022-05-27] VITALS: Ht 154.9 cm; Wt 113.4 kg
[2022-05-27 09:47] LABS: Influenza A, PCR NEGATIVE (NEGATIVE); Influenza B, PCR NEGATIVE (NEGATIVE); Resp Syncytial Virus, PCR NEGATIVE (NEGATIVE); SARS-Cov-2 (COVID-19) PCR, MMC NEGATIVE (NEGATIVE)
[2022-05-27] MEDS ORDERED: IBUP800 PO (10:20)
[2022-05-27] MEDS ORDERED: Amoxicillin875 MG PO (10:20)
== END 2022-05-27 10:32 | disposition home or self-care (01) ==
LOC: ER 07:58
PROVIDERS: Emergency Medicine
DX: J02.0 Streptococcal pharyngitis (principal); E11.9 Type 2 diabetes mellitus without complications; J45.909 Unspecified asthma, uncomplicated; Z88.5 Allergy status to narcotic agent; Z79.899 Other long term (current) drug therapy; Z79.84 Long term (current) use of oral hypoglycemic drugs; Z79.52 Long term (current) use of systemic steroids; Z20.822 Contact with and (suspected) exposure to COVID-19
CPT/HCPCS: 0241U; 87430; 99282

== ENCOUNTER 2022-06-07 15:08 | Emergency (ER) | payer OTHER ==
[~2022-06-07] VITALS: Ht 180.3 cm; Wt 167.8 kg
[~2022-06-07 15:08] MED LIST changes: +Amoxicillin875 MG PO
[2022-06-07] MEDS ORDERED: AMOCLA875 PO (16:47)
== END 2022-06-07 17:01 | disposition home or self-care (01) ==
LOC: ER 15:08
DX: K08.89 Other specified disorders of teeth and supporting structures (principal); Z79.899 Other long term (current) drug therapy; Z87.891 Personal history of nicotine dependence
CPT/HCPCS: A9270

== ENCOUNTER 2022-06-27 23:02 | Emergency (ER) | payer OTHER ==
[~2022-06-27] VITALS: Ht 180.3 cm; Wt 171.0 kg
[~2022-06-27 23:02] MED LIST changes: +AMOCLA875 PO
[2022-06-27] MEDS ORDERED: ABILIFY MYCITE2 M2 (23:23)
[2022-06-27] MEDS ORDERED: HYDROXYZINE PAM25 MG PO (23:23)
[2022-06-28 00:07] LABS: BASOPHILS ABSOLUTE AUTO 0.09 K/mm3 (0.00-0.23); BASOPHILS PERCENT AUTO 1 % (0-2); EOSINOPHILS ABSOLUTE AUTO 0.43 K/mm3 (0.00-0.68); EOSINOPHILS PERCENT AUTO 4 % (0-6); Hematocrit 46.3 % (37.0-53.0); Hemoglobin 15.1 g/dL (13.5-17.5); IMMATURE GRAN ABSOLUTE AUTO 0.06 K/mm3 (0.00-0.10); IMMATURE GRAN PERCENT AUTO 1 % (0-1); LYMPHOCYTES ABSOLUTE AUTO 3.61 K/mm3 (0.84-5.20); LYMPHOCYTES PERCENT AUTO 30 % (21-46); MONOCYTES ABSOLUTE AUTO 0.88 K/mm3 (0.16-1.47); MONOCYTES PERCENT AUTO 7 % (4-13); Mean Corpuscular HGB 30.8 pg (26.0-34.0); Mean Corpuscular HGB Conc 32.6 g/dL (31.5-36.5); Mean Corpuscular Volume 95 fL (80-100); Mean Platelet Volume 10.6 fL (9.1-12.4); NEUTROPHILS ABSOLUTE AUTO 7.04 K/mm3 (1.96-9.15); NEUTROPHILS PERCENT AUTO 58 % (41-73); Platelet Count 257 K/mm3 (150-400); RDW Coefficient Variation 12.9 % (11.7-14.2); RDW Standard Deviation 44.1 fL (35.1-46.3); White Blood Cell Count 12.11 K/mm3 (4.00-11.30)
[2022-06-28 00:19] LABS: Calcium, Blood 9.2 mg/dL (8.5-10.1); Creatinine, Blood 1.07 mg/dL (0.60-1.20); Potassium, Blood 4.1 mmol/L (3.5-5.5)
== END 2022-06-28 03:51 | disposition home or self-care (01) ==
LOC: ER 23:02
PROVIDERS: Student in an Organized Health Care Education/Training Program
DX: R07.89 Other chest pain (principal); J45.909 Unspecified asthma, uncomplicated; E11.9 Type 2 diabetes mellitus without complications; G47.30 Sleep apnea, unspecified; Z79.899 Other long term (current) drug therapy; Z79.84 Long term (current) use of oral hypoglycemic drugs; Z87.891 Personal history of nicotine dependence
CPT/HCPCS: 36415; 71046; 80048; 83735; 83880; 84484; 85025; 93005; 93010; 96374; 99285-25; A9270; J1885

== ENCOUNTER 2022-07-13 06:10 | Emergency (ER) | payer OTHER ==
[~2022-07-13] VITALS: Ht 180.3 cm; Wt 169.6 kg
[~2022-07-13 06:10] MED LIST changes: +ABILIFY MYCITE2 M2; +HYDROXYZINE PAM25 MG PO
[2022-07-13 06:17] VITALS: BP 135/85
== END 2022-07-13 09:17 | disposition home or self-care (01) ==
LOC: ER 06:10
DX: R09.81 Nasal congestion (principal); R05.9 Cough, unspecified; Z79.899 Other long term (current) drug therapy; Z79.84 Long term (current) use of oral hypoglycemic drugs; E11.9 Type 2 diabetes mellitus without complications; G47.30 Sleep apnea, unspecified; J45.909 Unspecified asthma, uncomplicated; I10 Essential (primary) hypertension; Z87.891 Personal history of nicotine dependence
CPT/HCPCS: 94640; 94664; 99283-25; A9270

== ENCOUNTER → 2022-11-09 | Outpatient (CLI) | payer OTHER | END | disposition home or self-care (01) | LOC: LAB 09:27 → LAB SHORT 09:27 | DX: N39.0 Urinary tract infection, site not specified (principal) | CPT/HCPCS: 87077; 87086; 87186 ==

== ENCOUNTER 2023-01-02 20:37 | Emergency (ER) | payer OTHER ==
[~2023-01-02] VITALS: Ht 180.3 cm; Wt 161.0 kg
[2023-01-02 21:21] LABS: BASOPHILS ABSOLUTE AUTO 0.07 K/mm3 (0.00-0.23); BASOPHILS PERCENT AUTO 1 % (0-2); EOSINOPHILS ABSOLUTE AUTO 0.26 K/mm3 (0.00-0.68); EOSINOPHILS PERCENT AUTO 2 % (0-6); Hematocrit 48.9 % (37.0-53.0); Hemoglobin 16.3 g/dL (13.5-17.5); IMMATURE GRAN ABSOLUTE AUTO 0.08 K/mm3 (0.00-0.10); IMMATURE GRAN PERCENT AUTO 1 % (0-1); LYMPHOCYTES ABSOLUTE AUTO 2.95 K/mm3 (0.84-5.20); LYMPHOCYTES PERCENT AUTO 26 % (21-46); MONOCYTES ABSOLUTE AUTO 0.77 K/mm3 (0.16-1.47); MONOCYTES PERCENT AUTO 7 % (4-13); Mean Corpuscular HGB 30.6 pg (26.0-34.0); Mean Corpuscular HGB Conc 33.3 g/dL (31.5-36.5); Mean Corpuscular Volume 92 fL (80-100); Mean Platelet Volume 10.7 fL (9.1-12.4); NEUTROPHILS ABSOLUTE AUTO 7.07 K/mm3 (1.96-9.15); NEUTROPHILS PERCENT AUTO 63 % (41-73); Platelet Count 285 K/mm3 (150-400); RDW Coefficient Variation 12.8 % (11.7-14.2); RDW Standard Deviation 43.7 fL (35.1-46.3); Red Blood Cell Count 5.32 M/mm3 (4.30-5.90)
[2023-01-02 21:37] LABS: Albumin, Blood 3.2 g/dL (3.4-5.0); Albumin/Globulin Ratio 0.7 (0.8-1.8); Bilirubin, Total 0.2 mg/dL (0.1-1.0); Bun/Creatinine Ratio 17.1 (12.0-20.0); Creatinine, Blood 0.99 mg/dL (0.60-1.20); Globulin, Blood 4.8 g/dL (2.2-4.0); Potassium, Blood 4.5 mmol/L (3.5-5.5)
[2023-01-02 22:18] VITALS: BP 119/69
== END 2023-01-02 22:54 | disposition home or self-care (01) ==
LOC: ER 20:37
PROVIDERS: Emergency Medicine
DX: R07.89 Other chest pain (principal); R20.8 Other disturbances of skin sensation; Z79.899 Other long term (current) drug therapy; Z79.84 Long term (current) use of oral hypoglycemic drugs; Z87.891 Personal history of nicotine dependence
CPT/HCPCS: 71046; 80053; 84484; 85025; 93005; 93010; 99285-25

== ENCOUNTER 2023-03-09 09:56 | Emergency (ER) | payer OTHER ==
[~2023-03-09] VITALS: Ht 180.3 cm; Wt 158.8 kg
[2023-03-09 10:27] VITALS: BP 151/118
== END 2023-03-09 12:00 | disposition home or self-care (01) ==
LOC: ER 09:56
DX: J02.9 Acute pharyngitis, unspecified (principal); Z79.84 Long term (current) use of oral hypoglycemic drugs; Z79.899 Other long term (current) drug therapy; Z87.891 Personal history of nicotine dependence
CPT/HCPCS: 87081; 87430; 99283; J1100

== ENCOUNTER 2023-03-18 23:48 | Emergency (ER) | payer OTHER ==
[~2023-03-18] VITALS: Ht 180.3 cm; Wt 161.9 kg
[2023-03-19 00:40] LABS: BASOPHILS ABSOLUTE AUTO 0.06 K/mm3 (0.00-0.23); BASOPHILS PERCENT AUTO 1 % (0-2); EOSINOPHILS ABSOLUTE AUTO 0.31 K/mm3 (0.00-0.68); EOSINOPHILS PERCENT AUTO 3 % (0-6); Hemoglobin 14.3 g/dL (13.5-17.5); IMMATURE GRAN ABSOLUTE AUTO 0.07 K/mm3 (0.00-0.10); IMMATURE GRAN PERCENT AUTO 1 % (0-1); LYMPHOCYTES ABSOLUTE AUTO 2.65 K/mm3 (0.84-5.20); LYMPHOCYTES PERCENT AUTO 23 % (21-46); MONOCYTES ABSOLUTE AUTO 0.85 K/mm3 (0.16-1.47); MONOCYTES PERCENT AUTO 7 % (4-13); Mean Corpuscular HGB 31.1 pg (26.0-34.0); Mean Corpuscular HGB Conc 32.5 g/dL (31.5-36.5); Mean Corpuscular Volume 96 fL (80-100); Mean Platelet Volume 10.6 fL (9.1-12.4); NEUTROPHILS ABSOLUTE AUTO 7.62 K/mm3 (1.96-9.15); NEUTROPHILS PERCENT AUTO 66 % (41-73); Platelet Count 243 K/mm3 (150-400); RDW Coefficient Variation 13.2 % (11.7-14.2); RDW Standard Deviation 46.8 fL (35.1-46.3); White Blood Cell Count 11.56 K/mm3 (4.00-11.30)
[2023-03-19 01:00] LABS: Albumin, Blood 3.1 g/dL (3.4-5.0); Albumin/Globulin Ratio 0.7 (0.8-1.8); Bilirubin, Total 0.3 mg/dL (0.1-1.0); Bun/Creatinine Ratio 12.9 (12.0-20.0); Calcium, Blood 8.6 mg/dL (8.5-10.1); Creatinine, Blood 0.77 mg/dL (0.60-1.20); Globulin, Blood 4.2 g/dL (2.2-4.0); Potassium, Blood 3.9 mmol/L (3.5-5.5); Total Protein, Blood 7.3 g/dL (6.4-8.2)
[2023-03-19 02:12] VITALS: BP 153/92
[2023-03-19] MEDS ORDERED: Ibuprofen600 MG PO (02:52)
[2023-03-19] MEDS ORDERED: ALBU90OI INH (02:52)
== END 2023-03-19 03:08 | disposition home or self-care (01) ==
LOC: ER 23:48
PROVIDERS: Student in an Organized Health Care Education/Training Program
DX: J02.9 Acute pharyngitis, unspecified (principal); K13.79 Other lesions of oral mucosa; F15.10 Other stimulant abuse, uncomplicated; J45.909 Unspecified asthma, uncomplicated; Z79.84 Long term (current) use of oral hypoglycemic drugs; Z79.899 Other long term (current) drug therapy
CPT/HCPCS: 70491; 80053; 85025; 94640; 94664; 99284-25; Q9967